=== PATIENT | female | born 1945 | race Two or more races ===

== ENCOUNTER → 2023-01-05 15:25 | Outpatient (CLI) | payer MEDICARE, OTHER, SELFPAY ==
--- NOTE | ~2023-01-05 | MR_ITS ---
MRI of the lumbar spine Clinical History: Dextroscoliosis, back pain Technique: Axial T2-weighted images, and sagittal T1-weighted, T2-weighted, and and T2 fat-sat images were acquired. Findings: No acute fracture identified in the lumbar spine. There is a 2 mm retrolisthesis of L3 over L4. There is 5 mm anterolisthesis of L4 over L5. There is 5 mm anterolisthesis of L5 over S1. No siobhan picious bone marrow signal abnormality identified. At L1-L2, there is no disc bulge. There is minimal facet hypertrophy. No spinal canal stenosis or lucas ral foraminal narrowing. At L2-L3, there is minimal disc bulge and minimal facet joint arthropathy. No spinal canal stenosis. There is mild bilateral neural foraminal narrowing. At L3-L4, disc bulge and facet arthropathy contribute to minimal central canal stenosis. There is mod erate to severe bilateral neural foraminal narrowing. At L4-L5, disc bulge and uncovering with facet arthropathy contribute to severe spinal canal stenosis /thecal sac compression. There is a probable small right-sided synovial cyst measuring approximately 6 to 7 mm in transverse dimension, and 1.2 cm in craniocaudal extent (series 9 image 3). There is sev ere bilateral neural foraminal narrowing at this level. At L5-S1, diffuse disc bulge/uncovering and severe facet arthropathy are present. There is right late ral recess stenosis. There is severe right neural foraminal narrowing. Left neural foramen is relativ breanna well preserved. Paravertebral soft tissues are otherwise unremarkable. Impression: Multifactorial severe spinal canal stenosis/thecal sac compression L4-L5, related to disc bulge, face t arthropathy, as well as right-sided synovial cyst. There is severe bilateral neural foraminal narro wing at this level. Please see details above. Right lateral recess stenosis at L5-S1, with severe right neural foraminal narrowing. Moderate to severe bilateral neural foraminal narrowing at L3-L4. Grade 1 retrolisthesis of L3 over L4. 5 mm anterolisthesis of L4 over L5, and of L5 over S1. Reviewed, dictated and finalized at location . [employer] Impression: Multifactorial severe spinal canal stenosis/thecal sac compression L4-L5, relat ed to disc bulge, facet arthropathy, as well as right-sided synovial cyst. Ther e is severe bilateral neural foraminal narrowing at this level. Please see deta ils above. Right lateral recess stenosis at L5-S1, with severe right neural foraminal narr owing. Moderate to severe bilateral neural foraminal narrowing at L3-L4. Grade 1 retrolisthesis of L3 over L4. 5 mm anterolisthesis of L4 over L5, and of L5 over S1.
--- NOTE | ~2023-01-05 | MR_ITS ---
MRI of the thoracic spine Clinical History: Back pain Technique: Axial T2-weighted and gradient images, and sagittal T1-weighted, T2-weighted, and STIR severiano ges were acquired. Findings: There is no fracture or subluxation of the thoracic spine. Vertebral bodies maintain normal height and alignment. No focal or otherwise suspicious bone marrow signal abnormality seen. There are probable mild disc bulges at T2-T3 and T3-T4. No spinal canal stenosis or cord compression. No other disc bulge or herniation evident. No abnormal signal seen in the spinal cord. Paravertebral soft tissues are unremarkable. Impression: Probable mild disc bulges at T2-T3 and T3-T4. No other significant findings. Reviewed, dictated and finalized at [facility]. [employer] Impression: Probable mild disc bulges at T2-T3 and T3-T4. No other significant findings.
== END ==
PROVIDERS: PCP Family Medicine
DX: M41.86 Other forms of scoliosis, lumbar region (principal); M43.16 Spondylolisthesis, lumbar region; M47.816 Spondylosis without myelopathy or radiculopathy, lumbar region; M51.36 Other intervertebral disc degeneration, lumbar region
CPT/HCPCS: 72146; 72148

== ENCOUNTER 2023-04-13 13:03 | Outpatient (CLI) | payer MEDICARE, OTHER, SELFPAY ==
--- NOTE | ~2023-04-13 | DEXA_ITS ---
Bone Density Report Name: BERNY IRWIN Age: 78 Sex: Female Ethnicity: White Date of : 1945 Indication: postmenopausal; screening for osteoporosis; height loss; Referring Provider: REBEKAH CHAVEZ Study: Bone densitometry was performed. Exam Date: April 13, 2023 Accession number: [id number] Bone Density: Region BMD T-score Z-score Classification AP Spine(L1, L2, L4) 1.015 -0.2 2.5 Normal Femoral Neck (Left) 0.582 -2.4 -0.1 Osteopenia Total Hip (Left) 0.788 -1.3 0.8 Osteopenia Femoral Neck (Right) 0.633 -1.9 0.4 Osteopenia Total Hip (Right) 0.722 -1.8 0.3 Osteopenia Total Hip Mean 0.755 -1.6 0.6 Osteopenia World Health Organization criteria for BMD impression classify patients as: Normal (T-score at or above -1.0), Osteopenia (T-score between -1.0 and -2.5), or Osteoporosis (T-score at or below -2.5). 10-year Fracture Risk: FRAX not reported because: Treated for osteoporosis Clinical Information Provided by Patient: Is being treated for osteoporosis Has used the following medications: Vitamin D, Calcium Patient maximum height was 64 Menopause Age: 46 Does not regularly consume dairy products Drinks caffeinated beverages Onset of menses at age 9 Number of children 4 Impression: The patient has low bone mass, based on the Left Femoral Neck T-score. Discussion: It is important to ask patients whether they are taking their medications and to encourage continued and appropriate compliance with their osteoporosis therapies to reduce fracture risk. It is also important to review their risk factors and encourage appropriate calcium and vitamin D intakes, exercise, fall prevention and other lifestyle measures. Follow-Up: Consider a repeat BMD and Vertebral Fracture Assessment (VFA) exam in 2 years or sooner if medically necessary, to reassess this patient's status. Reported by: [facility] on 04/13/2023 1:35:00 PM. Reviewed, dictated and finalized at location APerez MALONEY
== END 2023-04-13 13:04 | disposition home or self-care (01) ==
PROVIDERS: PCP Family Medicine; Visit Provider Neurological Surgery
DX: Z78.0 Asymptomatic menopausal state (principal); M85.852 Other specified disorders of bone density and structure, left thigh; M85.851 Other specified disorders of bone density and structure, right thigh
CPT/HCPCS: 77080